=== PATIENT | female | born 1995 | race Caucasian/White ===

== ENCOUNTER 2018-09-07 14:16 | Outpatient (CLI) | payer MEDICAID | END 2018-09-07 15:57 | disposition home or self-care (01) | LOC: OBT 14:16 → L-D 14:18 → OBT 15:57 | DX: O41.03X0 Oligohydramnios, third trimester, not applicable or unspecified (principal); Z3A.36 36 weeks gestation of pregnancy | CPT/HCPCS: 76818 ==

== ENCOUNTER 2018-09-23 17:42 | Outpatient (CLI) | payer MEDICAID | END 2018-09-23 20:03 | disposition home or self-care (01) | LOC: OBT 17:42 → L-D 17:42 → OBT 20:03 | DX: O26.843 Uterine size-date discrepancy, third trimester (principal); Z3A.39 39 weeks gestation of pregnancy | CPT/HCPCS: 76815; 76818 ==

== ENCOUNTER 2018-09-27 14:03 | Inpatient (IN) | payer MEDICAID ==
[2018-09-27] MEDS ORDERED: MISOPROSTOL 200 MCG TAB PR (14:30)
[2018-09-27] MEDS ORDERED: OXYTOCIN 30 UNITS/LR 500 ML IV ×2 (14:30)
[2018-09-27] MEDS ORDERED: METHYLERGONOVINE 0.2 MG INJ IM (14:30)
[2018-09-27] MEDS ORDERED: LIDOCAINE 1% (MPF) 30 ML INJ INJ (14:30)
[2018-09-27] MEDS ORDERED: BUTORPHANOL 2 MG INJ IV (14:30)
[2018-09-27] MEDS ORDERED: IBUPROFEN 600 MG TAB PO (14:30)
[2018-09-27] MEDS ORDERED: CARBOPROST 250 MCG INJ IM (14:30)
[2018-09-27] MEDS: LACTATED RINGER'S 1,000 ML IV ×4 (15:08→21:44)
[2018-09-27 15:14] LABS: ADD MAN DIFF? NO
[2018-09-27 15:16] LABS: BASOPHIL # 0.1 10^3/ul (0.0-0.1); BASOPHILS % 0.7 % (0.0-2.0); EOSINOPHILS # 0.2 10^3/ul (0.0-0.5); EOSINOPHILS % 1.7 % (0.0-7.0); HEMATOCRIT 36.6 % (37.0-47.0); HEMOGLOBIN 11.9 g/dl (12.0-16.0); LYMPHOCYTES # 2.2 10^3/ul (0.8-2.9); LYMPHOCYTES % 24.7 % (15.0-51.0); MEAN CORPUSCULAR HEMOGLOBIN 26.9 pg (29.0-33.0); MEAN CORPUSCULAR HGB CONC 32.5 g/dl (32.0-37.0); MEAN CORPUSCULAR VOLUME 82.6 fl (82.0-101.0); MEAN PLATELET VOLUME 9.6 fl (7.4-10.4); MONOCYTE # 0.7 10^3/ul (0.3-0.9); MONOCYTES % 7.5 % (0.0-11.0); NEUTROPHIL # 5.6 10^3/ul (1.6-7.5); NEUTROPHILS % 63.4 % (39.0-77.0); PLATELET COUNT 264 10^3/UL (140-415); RED BLOOD COUNT 4.43 10^6/ul (4.20-5.40); RED CELL DISTRIBUTION WIDTH 14.2 % (11.5-14.5)
[2018-09-27 15:16] LABS: WHITE BLOOD COUNT 8.8 10^3/ul (4.8-10.8)
[2018-09-27 15:36] LABS: INR 0.87; PROTIME 11.9 Sec (11.9-14.9); PT RATIO 0.9
[2018-09-27 15:37] LABS: PARTIAL THROMBOPLASTIN TIME 26.6 Sec (23.0-35.0)
[2018-09-27] MEDS: OXYTOCIN 30 UNITS/LR 500 ML IV (15:57)
[2018-09-27 16:27] LABS: HEPATITIS B SURFACE ANTIGEN NEGATIVE (NEGATIVE)
[2018-09-27] MEDS ORDERED: MINERAL OIL LIGHT 10 ML VIAL TOP (21:00)
[2018-09-27] MEDS ORDERED: FENTAnyl 2MCG/ML-ROPIV 0.2% 100 ML (21:00)
[2018-09-27] MEDS ORDERED: ONDANSETRON 4 MG INJ IV (21:30)
[2018-09-27] MEDS ORDERED: DIPHENHYDRAMINE 50 MG INJ IV (21:30)
[2018-09-27] MEDS ORDERED: NALOXONE (0.4 MG/ML) INJ IV (21:30)
[2018-09-28] MEDS: LACTATED RINGER'S 1,000 ML IV ×2 (01:16→05:33)
[2018-09-28] MEDS: FENTAnyl 2MCG/ML-ROPIV 0.2% 100 ML BAG EPI (06:05)
[2018-09-28 07:52] LABS: AADO2 Cord Arterial 72.1 mmHg; Arterial Cord Blood pCO2 40.6 mmHG (25-50); CBA Base Excess -1.5 mmol/L; CBA COHb 0.5 %; CBA Oxygen Sat 65.5 mmHG; CBA Total Hemglobin 14.6 g/dl; Fraction OxyHgb Cord Arterial 64.3 %; MODE ROOM AIR; MetHgb Cord Arterial 1.4 %; Sample Type CBA; Site CORD
[2018-09-28] MEDS: OXYTOCIN 30 UNITS/LR 500 ML IV ×2 (07:56→11:33)
[2018-09-28] MEDS ORDERED: CARBOPROST 250 MCG INJ IM (08:00)
[2018-09-28] MEDS ORDERED: DIPHENHYDRAMINE 25 MG CAP PO (08:00)
[2018-09-28] MEDS ORDERED: ZOLPIDEM 5 MG TAB PO (08:00)
[2018-09-28] MEDS ORDERED: BENZOCAINE 20% 56 ML SPRAY TOP (08:00)
[2018-09-28] MEDS ORDERED: NACL 0.9% 3 ML SYG IV (08:00)
[2018-09-28] MEDS ORDERED: SENNA/DOCUSATE NA (8.6MG/50MG) TAB PO (08:00)
[2018-09-28] MEDS ORDERED: MISOPROSTOL 200 MCG TAB PR (08:00)
[2018-09-28] MEDS ORDERED: METHYLERGONOVINE 0.2 MG INJ IM (08:00)
[2018-09-28] MEDS ORDERED: HYDROCODONE/APAP (5/325) TAB PO (08:00)
[2018-09-28] MEDS ORDERED: MAGNESIUM HYDROXIDE 30ML CUP PO (08:00)
[2018-09-28] MEDS ORDERED: WITCH HAZEL/GLYCERIN PAD PR (08:00)
[2018-09-28] MEDS ORDERED: ONDANSETRON 4 MG INJ IV (08:00)
[2018-09-28] MEDS ORDERED: ACETAMINOPHEN 325 MG TAB PO (08:00)
[2018-09-28] MEDS ORDERED: OXYTOCIN 30 UNITS/LR 500 ML IV (08:00)
[2018-09-28 08:34] LABS: HEMATOCRIT 32.8 % (37.0-47.0); HEMOGLOBIN 10.6 g/dl (12.0-16.0)
[2018-09-28] MEDS: BENZOCAINE 20% 56 ML SPRAY TOP (11:33)
[2018-09-28] MEDS: IBUPROFEN 600 MG TAB PO ×4 (11:33→23:28)
[2018-09-28] MEDS: WITCH HAZEL/GLYCERIN PAD PR (11:33)
[2018-09-28] MEDS: LANOLIN HPA 1 PKT TOP (11:34)
[2018-09-28 20:20] LABS: RAPID PLASMA REAGIN NONREACTIVE (NR)
[2018-09-29] MEDS: IBUPROFEN 600 MG TAB PO ×3 (05:34→17:49)
[2018-09-29 07:12] LABS: ADD MAN DIFF? NO
[2018-09-29 07:17] LABS: BASOPHIL # 0.1 10^3/ul (0.0-0.1); BASOPHILS % 0.5 % (0.0-2.0); EOSINOPHILS # 0.3 10^3/ul (0.0-0.5); EOSINOPHILS % 2.7 % (0.0-7.0); HEMATOCRIT 29.2 % (37.0-47.0); HEMOGLOBIN 9.4 g/dl (12.0-16.0); LYMPHOCYTES # 2.2 10^3/ul (0.8-2.9); MEAN CORPUSCULAR HEMOGLOBIN 26.9 pg (29.0-33.0); MEAN CORPUSCULAR HGB CONC 32.2 g/dl (32.0-37.0); MEAN CORPUSCULAR VOLUME 83.4 fl (82.0-101.0); MEAN PLATELET VOLUME 9.8 fl (7.4-10.4); MONOCYTE # 0.8 10^3/ul (0.3-0.9); MONOCYTES % 7.9 % (0.0-11.0); NEUTROPHIL # 7.1 10^3/ul (1.6-7.5); PLATELET COUNT 230 10^3/UL (140-415); RED CELL DISTRIBUTION WIDTH 14.6 % (11.5-14.5)
[2018-09-29 07:17] LABS: WHITE BLOOD COUNT 10.6 10^3/ul (4.8-10.8)
[2018-09-30] MEDS: IBUPROFEN 600 MG TAB PO ×3 (00:25→12:16)
[2018-09-30] MEDS: LANOLIN HPA 1 PKT TOP (01:07)
[2018-09-30] MEDS ORDERED: MEASLES,MUMPS,RUBELLA VACCINE INJ SC* (09:00)
[2018-09-30] MEDS: DIPHTH/TET/ACEL PERTUSS (ADULT) 0.5 ML VIAL IM* (09:26)
== END 2018-09-30 16:15 | disposition home or self-care (01) | DRG 807 ==
LOC: OBT 14:03 → PP1 09-28 09:16 → L-D 14:04
PROVIDERS: Obstetrics & Gynecology
PROC: 10E0XZZ Delivery of Products of Conception, External Approach (ICD-10-PCS; principal; 2018-09-28)
DX: O80 Encounter for full-term uncomplicated delivery (principal); Z37.0 Single live birth; Z3A.39 39 weeks gestation of pregnancy
CPT/HCPCS: 36600; 62322; 82803; 85014; 85018; 85025; 85610; 85730; 86592; 86850; 86900; 86901; 87340; 99464